=== PATIENT | male | born 1965 | race Caucasian/White ===

== ENCOUNTER → 2017-01-22 | Outpatient (CLI) | payer OTHER ==
[~2017-01-22] MED LIST: OMNIPAQUE 350 MG/ML, 100ML BOTTLE ONE
== END | disposition home or self-care (01) ==
LOC: CFH 08:53
PROVIDERS: ATTEND Internal Medicine
DX: M79.604 Pain in right leg (principal); I71.4 Abdominal aortic aneurysm, without rupture; I70.92 Chronic total occlusion of artery of the extremities
CPT/HCPCS: 75635; 82565; Q9967